=== PATIENT | male | born 1985 | race African-American/Black ===

== ENCOUNTER 2016-07-17 14:35 | Inpatient (IN) | payer MEDICAID ==
[~2016-07-17] VITALS: Ht 182.9 cm; Wt 114.3 kg
[2016-07-17] MEDS ORDERED: HALOD100I IM (16:11)
[2016-07-17 18:03] VITALS: BP 137/91
[2016-07-17] MEDS ORDERED: INFLUENZA VIRUS VACCINE QVS 2016-17 (3YR+)/PF 60 MCG/0.5 ML SYRINGE IM ONE (18:15)
[2016-07-17] MEDS ORDERED: ZOLPIDEM TARTRATE 10 MG TABLET PO PRN (18:45)
[2016-07-17] MEDS ORDERED: HALOPERIDOL 5 MG TABLET PO PRN (18:45)
[2016-07-17 19:04] VITALS: BP 142/88
[2016-07-17] MEDS: LORazepam 2 MG TABLET PO PRN (19:17)
[2016-07-17] MEDS: BENZTROPINE MESYLATE 0.5 MG TABLET PO SCH (22:27)
[2016-07-17] MEDS: HALOPERIDOL 5 MG TABLET PO SCH (22:27)
[2016-07-18 01:39] VITALS: BP 135/81
[2016-07-18] MEDS ORDERED: BISMUTH SUBSALICYLATE 262 MG CHEWABLE TABLET CHEW PRN (08:00)
[2016-07-18 08:11] VITALS: BP 118/50
[2016-07-18 08:30] LABS: BASOPHILS # (AUTO) 0.06 K/uL (0.00-0.20); BASOPHILS % (AUTO) 0.8 % (0.0-2.0); EOSINOPHILS # (AUTO) 0.11 K/uL (0.00-0.70); HEMATOCRIT 44.5 % (41-53); HEMOGLOBIN 14.5 g/dL (13.5-17.5); LYMPHOCYTES # (AUTO) 2.8 K/uL (1.0-4.8); LYMPHOCYTES % (AUTO) 37.2 % (22.0-44.0); MEAN CORPUSCULAR HEMOGLOBIN 28.4 pg (26.0-34.0); MEAN CORPUSCULAR HGB CONC 32.6 G/dL (31.0-37.0); MEAN CORPUSCULAR VOLUME 87 fL (80-100); MONOCYTES # (AUTO) 0.5 K/uL (0.1-1.0); MONOCYTES % (AUTO) 7.1 % (2.0-9.0); NEUTROPHILS % (AUTO) 53.4 % (40.0-70.0); PLATELET COUNT (AUTO) 166 K/uL (150-450); RED BLOOD CELL COUNT(AUTO) 5.12 MIL/uL (4.50-5.90); RED CELL DISTRIBUTION WIDTH 14.9 % (11.5-14.5); WHITE BLOOD COUNT (AUTO) 7.6 K/uL (4.5-11.0)
[2016-07-18 08:48] LABS: ALANINE AMINOTRANSFERASE 19 U/L (12-78); ALBUMIN 4.3 g/dL (3.4-5.0); ANION GAP 10 mmol/L (8-16); ASPARTATE AMINOTRANSFERASE 7 U/L (15-37); BILIRUBIN,TOTAL 0.4 mg/dL (0.1-1.0); CALCIUM, TOTAL 9.3 mg/dL (8.8-10.5); CARBON DIOXIDE 26 mmol/L (22-29); CHLORIDE 104 mmol/L (98-107); CHOL/HDL RATIO 3.3 (4.2-7.3); CREATININE 0.78 mg/dL (0.60-1.30); GLOMERULAR FILTR. RATE CALC > 60 mL/min (>60); POTASSIUM 4.4 mmol/L (3.5-5.1); SODIUM SERUM 140 mmol/L (136-145); THYROID STIMULATING HORMONE 0.92 uIU/mL (0.36-3.74); TOTAL PROTEIN, SERUM 7.8 g/dL (6.4-8.2); UREA NITROGEN, BLOOD 7 mg/dL (7-18)
[2016-07-18] MEDS: BENZTROPINE MESYLATE 0.5 MG TABLET PO SCH ×2 (09:10→16:50)
[2016-07-18] MEDS: HALOPERIDOL 5 MG TABLET PO SCH ×2 (09:10→16:50)
[2016-07-18] MEDS: NICOTINE 14 MG/24 HOUR PATCH TD SCH (09:10)
[2016-07-18 16:27] VITALS: BP 140/76
[2016-07-18] MEDS: LORazepam 2 MG TABLET PO PRN (16:50)
[2016-07-19 07:11] VITALS: BP 122/75
[2016-07-19 08:11] VITALS: BP 133/68
[2016-07-19] MEDS: BENZTROPINE MESYLATE 0.5 MG TABLET PO SCH ×2 (08:41→16:42)
[2016-07-19] MEDS: HALOPERIDOL 5 MG TABLET PO SCH ×2 (08:42→16:42)
[2016-07-19] MEDS: NICOTINE 14 MG/24 HOUR PATCH TD SCH (08:45)
[2016-07-19 16:00] VITALS: BP 121/72
[2016-07-20 06:41] VITALS: BP 122/60
[2016-07-20 08:38] VITALS: BP 120/68
[2016-07-20] MEDS: BENZTROPINE MESYLATE 0.5 MG TABLET PO SCH ×2 (08:50→17:18)
[2016-07-20] MEDS: HALOPERIDOL 5 MG TABLET PO SCH ×2 (08:50→17:18)
[2016-07-20] MEDS: NICOTINE 14 MG/24 HOUR PATCH TD SCH (08:54)
[2016-07-20 16:25] VITALS: BP 122/61
[2016-07-20] MEDS: LORazepam 2 MG TABLET PO PRN (19:10)
[2016-07-21 06:47] VITALS: BP 130/85
[2016-07-21 08:40] VITALS: BP 124/69
[2016-07-21] MEDS: HALOPERIDOL 5 MG TABLET PO SCH ×2 (08:40→16:38)
[2016-07-21] MEDS: BENZTROPINE MESYLATE 0.5 MG TABLET PO SCH ×2 (08:40→16:37)
[2016-07-21] MEDS: NICOTINE 14 MG/24 HOUR PATCH TD SCH (08:41)
[2016-07-21 16:26] VITALS: BP 132/69
[2016-07-21] MEDS: LORazepam 2 MG TABLET PO PRN ×2 (16:38→20:43)
[2016-07-22 06:42] VITALS: BP 108/61
[2016-07-22 08:11] VITALS: BP 129/76
[2016-07-22] MEDS ORDERED: BENZ0.5T6 PO (08:13)
[2016-07-22] MEDS ORDERED: HALO5 PO (08:13)
[2016-07-22] MEDS: HALOPERIDOL 5 MG TABLET PO SCH (08:54)
[2016-07-22] MEDS: BENZTROPINE MESYLATE 0.5 MG TABLET PO SCH (08:54)
[2016-07-22] MEDS: NICOTINE 14 MG/24 HOUR PATCH TD SCH (08:54)
== END 2016-07-22 13:40 | disposition home or self-care (01) | DRG 750 ==
LOC: B3A 18:47
PROVIDERS: ADMIT Psychiatry & Neurology Psychiatry; ATTEND Psychiatry & Neurology Psychiatry
DX: F25.1 Schizoaffective disorder, depressive type (principal); F15.20 Other stimulant dependence, uncomplicated; F17.210 Nicotine dependence, cigarettes, uncomplicated; Z71.6 Tobacco abuse counseling; Z28.21 Immunization not carried out because of patient refusal; Z79.899 Other long term (current) drug therapy; Z84.89 Family history of other specified conditions
CPT/HCPCS: 84443; 90471

== ENCOUNTER 2017-01-26 17:37 | Inpatient (IN) | payer MEDICAID ==
[~2017-01-26] VITALS: Ht 182.9 cm; Wt 96.4 kg
[~2017-01-26 17:37] MED LIST: BENZ0.5T6 PO; HALO5 PO
[2017-01-26 18:27] VITALS: BP 123/75
[2017-01-26] MEDS: BENZTROPINE MESYLATE 1 MG TABLET PO SCH (18:59)
[2017-01-26] MEDS ORDERED: INFLUENZA VIRUS VACCINE QVS 2017-18 (3YR+)/PF 60 MCG/0.5 ML SYRINGE IM ONE (19:00)
[2017-01-26] MEDS ORDERED: LORazepam 2 MG TABLET PO PRN (19:45)
[2017-01-26] MEDS ORDERED: HALOPERIDOL 5 MG TABLET PO PRN (19:45)
[2017-01-26] MEDS ORDERED: ZOLPIDEM TARTRATE 10 MG TABLET PO PRN (19:45)
[2017-01-26] MEDS ORDERED: HALOPERIDOL 10 MG TABLET PO SCH (21:00)
[2017-01-27 06:52] VITALS: BP 105/55
[2017-01-27 08:31] VITALS: BP 126/62
[2017-01-27] MEDS: BENZTROPINE MESYLATE 1 MG TABLET PO SCH (09:00)
[2017-01-27] MEDS ORDERED: OLANZapine 5 MG RAPDIS TABLET PO PRN (14:45)
[2017-01-27] MEDS ORDERED: GuaiFENesin/D-METHORPHAN [SUGAR-FREE] 200-20MG/10 ML SYRUP UDCUP PO PRN (14:45)
[2017-01-27] MEDS ORDERED: ACETAMINOPHEN 325 MG TABLET PO PRN (14:45)
[2017-01-27] MEDS ORDERED: TUBERCULIN, PURIFIED PROTEIN DERIVATIVE 5 TU/0.1 ML SYG ID ONE (14:45)
[2017-01-27] MEDS ORDERED: MAGNESIUM HYDROXIDE SUSPENSION 30 ML UDCUP PO PRN (14:45)
[2017-01-27] MEDS ORDERED: MAG HYDROX/AL HYDROX/SIMETH ES 30 ML SUSPENSION UDCUP PO PRN (14:45)
[2017-01-27] MEDS ORDERED: PROMETHAZINE HCL 25 MG TABLET PO PRN (14:45)
[2017-01-27] MEDS ORDERED: LOPERAMIDE HCL 2 MG CAPSULE PO PRN (14:45)
[2017-01-27] MEDS ORDERED: HydrOXYzine PAMOATE 50 MG CAPSULE PO PRN (14:45)
[2017-01-27] MEDS: THIAMINE HCL 100 MG TABLET PO SCH (16:25)
[2017-01-27 16:56] VITALS: BP 101/60
[2017-01-27] MEDS ORDERED: OLANZapine 5 MG RAPDIS TABLET PO SCH (21:00)
[2017-01-28 06:59] VITALS: BP 115/65
[2017-01-28 08:30] VITALS: BP 118/64
[2017-01-28] MEDS: NALTREXONE HCL 50 MG TABLET PO SCH (09:36)
[2017-01-28] MEDS: THIAMINE HCL 100 MG TABLET PO SCH ×2 (09:36→16:14)
[2017-01-28] MEDS: FOLIC ACID 1 MG TABLET PO SCH (09:36)
[2017-01-28] MEDS: MULTIVITAMINS WITH MINERALS, THERAPEUTIC TABLET PO SCH (09:36)
[2017-01-28] MEDS: FLUoxetine HCL 20 MG CAPSULE PO SCH (09:36)
[2017-01-28 16:48] VITALS: BP 124/67
[2017-01-28] MEDS: OLANZapine 10 MG RAPDIS TABLET PO SCH (20:27)
[2017-01-29 04:50] VITALS: BP 103/64
[2017-01-29] MEDS: NALTREXONE HCL 50 MG TABLET PO SCH (08:59)
[2017-01-29] MEDS: THIAMINE HCL 100 MG TABLET PO SCH ×2 (08:59→16:36)
[2017-01-29] MEDS: MULTIVITAMINS WITH MINERALS, THERAPEUTIC TABLET PO SCH (08:59)
[2017-01-29] MEDS: FLUoxetine HCL 20 MG CAPSULE PO SCH (08:59)
[2017-01-29] MEDS: FOLIC ACID 1 MG TABLET PO SCH (08:59)
[2017-01-29 09:00] VITALS: BP 108/58
[2017-01-29] MEDS ORDERED: OLAN10TA22 PO (15:01)
[2017-01-29] MEDS ORDERED: FLUO-191 PO (15:01)
[2017-01-29] MEDS ORDERED: NALT50TA PO (15:01)
[2017-01-29 16:27] VITALS: BP 125/80
[2017-01-29] MEDS: OLANZapine 10 MG RAPDIS TABLET PO SCH (20:23)
[2017-01-30 06:55] VITALS: BP 113/79
[2017-01-30] MEDS ORDERED: FLUoxetine HCL 20 MG CAPSULE PO SCH (09:00)
[2017-01-30 09:06] VITALS: BP 99/60
[2017-01-30] MEDS: FOLIC ACID 1 MG TABLET PO SCH (11:16)
[2017-01-30] MEDS: THIAMINE HCL 100 MG TABLET PO SCH (11:17)
[2017-01-30] MEDS: MULTIVITAMINS WITH MINERALS, THERAPEUTIC TABLET PO SCH (11:17)
[2017-01-30] MEDS ORDERED: MULT-723 PO (11:26)
[2017-01-30] MEDS ORDERED: FOLI1 PO (11:26)
[2017-01-30] MEDS ORDERED: THIA100 PO (11:26)
[2017-01-30] MEDS: NALTREXONE HCL 50 MG TABLET PO SCH (11:29)
[2017-05-13] MEDS ORDERED: BUPR75 PO (13:14)
[2017-05-18] MEDS ORDERED: FLUO-191 PO (11:46)
[2017-05-18] MEDS ORDERED: OLAN10TA3 PO (11:46)
[2017-05-18] MEDS ORDERED: BUPR-93 PO (11:46)
== END 2017-01-30 14:20 | disposition home or self-care (01) | DRG 750 ==
LOC: B2S 18:15 → EDSTATUS 18:27
PROVIDERS: ADMIT Psychiatry & Neurology Psychiatry; ATTEND Psychiatry & Neurology Psychiatry
DX: F20.0 Paranoid schizophrenia (principal); R45.851 Suicidal ideations; Z91.19 Patient's noncompliance with other medical treatment and regimen; F12.90 Cannabis use, unspecified, uncomplicated; F17.200 Nicotine dependence, unspecified, uncomplicated; F19.90 Other psychoactive substance use, unspecified, uncomplicated; E66.9 Obesity, unspecified; Z65.3 Problems related to other legal circumstances; Z68.34 Body mass index [BMI] 34.0-34.9, adult; Z82.49 Family history of ischemic heart disease and other diseases of the circulatory system; Z83.3 Family history of diabetes mellitus; Z59.0 Homelessness; Z72.89 Other problems related to lifestyle; Z71.41 Alcohol abuse counseling and surveillance of alcoholic; Z71.6 Tobacco abuse counseling; Z79.899 Other long term (current) drug therapy; Z28.21 Immunization not carried out because of patient refusal; Z81.8 Family history of other mental and behavioral disorders; Z84.89 Family history of other specified conditions; Z68.28 Body mass index [BMI] 28.0-28.9, adult
CPT/HCPCS: 90471

== ENCOUNTER 2017-02-11 12:08 | Inpatient (IN) | payer MEDICAID ==
[~2017-02-11] VITALS: Ht 182.9 cm; Wt 101.2 kg
[~2017-02-11 12:08] MED LIST changes: -BENZ0.5T6 PO; +FLUO-191 PO; +FOLI1 PO; -HALO5 PO; +MULT-723 PO; +NALT50TA PO; +OLAN10TA22 PO; +THIA100 PO
[2017-02-11 14:58] VITALS: BP 126/78
[2017-02-11] MEDS ORDERED: GuaiFENesin/D-METHORPHAN [SUGAR-FREE] 200-20MG/10 ML SYRUP UDCUP PO PRN (15:15)
[2017-02-11] MEDS ORDERED: LORazepam 2 MG TABLET PO PRN (15:15)
[2017-02-11] MEDS ORDERED: MAG HYDROX/AL HYDROX/SIMETH ES 30 ML SUSPENSION UDCUP PO PRN (15:15)
[2017-02-11] MEDS ORDERED: ZOLPIDEM TARTRATE 10 MG TABLET PO PRN (15:15)
[2017-02-11] MEDS ORDERED: INFLUENZA VIRUS VACCINE QVS 2017-18 (3YR+)/PF 60 MCG/0.5 ML SYRINGE IM ONE (15:15)
[2017-02-11] MEDS ORDERED: PROMETHAZINE HCL 25 MG TABLET PO PRN (15:15)
[2017-02-11] MEDS ORDERED: ACETAMINOPHEN 325 MG TABLET PO PRN (15:15)
[2017-02-11] MEDS ORDERED: HydrOXYzine PAMOATE 50 MG CAPSULE PO PRN (15:15)
[2017-02-11] MEDS ORDERED: MAGNESIUM HYDROXIDE SUSPENSION 30 ML UDCUP PO PRN (15:15)
[2017-02-11] MEDS ORDERED: LOPERAMIDE HCL 2 MG CAPSULE PO PRN (15:15)
[2017-02-11] MEDS ORDERED: OLANZapine 5 MG RAPDIS TABLET PO PRN (15:15)
[2017-02-11] MEDS ORDERED: OLAN10TA3 PO (15:28)
[2017-02-11] MEDS ORDERED: NALT50TA6 PO (15:28)
[2017-02-11] MEDS ORDERED: FLUO-191 PO (15:28)
[2017-02-11 17:27] VITALS: BP 126/66
[2017-02-11] MEDS: THIAMINE HCL 100 MG TABLET PO SCH (17:54)
[2017-02-11] MEDS: OLANZapine 5 MG RAPDIS TABLET PO SCH (21:37)
[2017-02-12 06:27] VITALS: BP 121/76
[2017-02-12 07:09] LABS: HEMOGLOBIN A1C 6.2 % (4.5-6.2)
[2017-02-12 07:10] LABS: ALANINE AMINOTRANSFERASE 23 U/L (12-78); ALBUMIN 3.5 g/dL (3.4-5.0); ANION GAP 7 mmol/L (8-16); ASPARTATE AMINOTRANSFERASE 9 U/L (15-37); BILIRUBIN,TOTAL 0.2 mg/dL (0.1-1.0); CALCIUM, TOTAL 8.7 mg/dL (8.8-10.5); CARBON DIOXIDE 31 mmol/L (22-29); CHLORIDE 107 mmol/L (98-107); CHOL/HDL RATIO 2.9 (4.2-7.3); CREATININE 0.93 mg/dL (0.60-1.30); GLOMERULAR FILTR. RATE CALC > 60 mL/min (>60); POTASSIUM 3.6 mmol/L (3.5-5.1); SODIUM SERUM 145 mmol/L (136-145); THYROID STIMULATING HORMONE 0.94 uIU/mL (0.36-3.74); TOTAL PROTEIN, SERUM 6.8 g/dL (6.4-8.2); UREA NITROGEN, BLOOD 12 mg/dL (7-18)
[2017-02-12 07:14] LABS: BASOPHILS % (AUTO) 0.4 % (0.0-2.0); EOSINOPHILS % (AUTO) 2.3 % (1.0-6.0); HEMATOCRIT 39.5 % (41-53); HEMOGLOBIN 13.2 g/dL (13.5-17.5); LYMPHOCYTES # (AUTO) 2.6 K/uL (1.0-4.8); MEAN CORPUSCULAR HEMOGLOBIN 29.4 pg (26.0-34.0); MEAN CORPUSCULAR HGB CONC 33.4 G/dL (31.0-37.0); MEAN CORPUSCULAR VOLUME 88 fL (80-100); MONOCYTES # (AUTO) 0.5 K/uL (0.1-1.0); MONOCYTES % (AUTO) 6.4 % (2.0-9.0); NEUTROPHILS % (AUTO) 54.9 % (40.0-70.0); PLATELET COUNT (AUTO) 180 K/uL (150-450); RED BLOOD CELL COUNT(AUTO) 4.49 MIL/uL (4.50-5.90); RED CELL DISTRIBUTION WIDTH 15.3 % (11.5-14.5); WHITE BLOOD COUNT (AUTO) 7.2 K/uL (4.5-11.0)
[2017-02-12] MEDS ORDERED: BISACODYL 5 MG EC TABLET PO PRN (07:45)
[2017-02-12] MEDS ORDERED: LACTULOSE 20 GM/30 ML SOLUTION UDCUP PO PRN (07:45)
[2017-02-12 08:52] VITALS: BP 119/72
[2017-02-12] MEDS ORDERED: DOCUSATE SODIUM 100 MG CAPSULE PO SCH (09:00)
[2017-02-12] MEDS: FOLIC ACID 1 MG TABLET PO SCH (09:39)
[2017-02-12] MEDS: NALTREXONE HCL 50 MG TABLET PO SCH (09:39)
[2017-02-12] MEDS: MULTIVITAMINS WITH MINERALS, THERAPEUTIC TABLET PO SCH (09:39)
[2017-02-12] MEDS: FLUoxetine HCL 20 MG CAPSULE PO SCH (09:39)
[2017-02-12] MEDS: THIAMINE HCL 100 MG TABLET PO SCH ×2 (09:39→16:22)
[2017-02-12] MEDS: DOCUSATE SODIUM 250 MG CAPSULE PO SCH (16:22)
[2017-02-12 16:30] VITALS: BP 124/78
[2017-02-12] MEDS: OLANZapine 5 MG RAPDIS TABLET PO SCH (20:43)
[2017-02-13 08:40] VITALS: BP 120/73
[2017-02-13] MEDS: MULTIVITAMINS WITH MINERALS, THERAPEUTIC TABLET PO SCH (09:20)
[2017-02-13] MEDS: DOCUSATE SODIUM 250 MG CAPSULE PO SCH ×2 (09:20→17:20)
[2017-02-13] MEDS: THIAMINE HCL 100 MG TABLET PO SCH ×2 (09:20→17:20)
[2017-02-13] MEDS: FOLIC ACID 1 MG TABLET PO SCH (09:21)
[2017-02-13] MEDS: NALTREXONE HCL 50 MG TABLET PO SCH (09:21)
[2017-02-13] MEDS: FLUoxetine HCL 20 MG CAPSULE PO SCH (09:21)
[2017-02-13 16:29] VITALS: BP 122/66
[2017-02-13] MEDS: OLANZapine 10 MG RAPDIS TABLET PO SCH (20:57)
[2017-02-14 08:22] VITALS: BP 115/60
[2017-02-14] MEDS: MULTIVITAMINS WITH MINERALS, THERAPEUTIC TABLET PO SCH (08:57)
[2017-02-14] MEDS: DOCUSATE SODIUM 250 MG CAPSULE PO SCH ×2 (08:57→17:38)
[2017-02-14] MEDS: FLUoxetine HCL 20 MG CAPSULE PO SCH (08:57)
[2017-02-14] MEDS: FOLIC ACID 1 MG TABLET PO SCH (08:57)
[2017-02-14] MEDS: NALTREXONE HCL 50 MG TABLET PO SCH (08:57)
[2017-02-14] MEDS: THIAMINE HCL 100 MG TABLET PO SCH ×2 (08:57→17:38)
[2017-02-14] MEDS: OLANZapine 10 MG RAPDIS TABLET PO SCH (20:19)
[2017-02-14 21:55] VITALS: BP 127/74
[2017-02-15 08:47] VITALS: BP 126/66
[2017-02-15] MEDS: THIAMINE HCL 100 MG TABLET PO SCH ×2 (09:14→17:07)
[2017-02-15] MEDS: NALTREXONE HCL 50 MG TABLET PO SCH (09:14)
[2017-02-15] MEDS: MULTIVITAMINS WITH MINERALS, THERAPEUTIC TABLET PO SCH (09:14)
[2017-02-15] MEDS: FLUoxetine HCL 20 MG CAPSULE PO SCH (09:14)
[2017-02-15] MEDS: DOCUSATE SODIUM 250 MG CAPSULE PO SCH ×2 (09:14→17:07)
[2017-02-15] MEDS: FOLIC ACID 1 MG TABLET PO SCH (09:14)
[2017-02-15 17:11] VITALS: BP 125/69
[2017-02-15] MEDS: OLANZapine 10 MG RAPDIS TABLET PO SCH (21:04)
[2017-02-16] MEDS: FLUoxetine HCL 20 MG CAPSULE PO SCH (08:55)
[2017-02-16] MEDS: MULTIVITAMINS WITH MINERALS, THERAPEUTIC TABLET PO SCH (08:56)
[2017-02-16] MEDS: THIAMINE HCL 100 MG TABLET PO SCH ×2 (08:56→16:55)
[2017-02-16] MEDS: FOLIC ACID 1 MG TABLET PO SCH (08:57)
[2017-02-16] MEDS: NALTREXONE HCL 50 MG TABLET PO SCH (08:57)
[2017-02-16] MEDS: DOCUSATE SODIUM 250 MG CAPSULE PO SCH ×2 (10:46→16:55)
[2017-02-16 11:00] VITALS: BP 136/70
[2017-02-16 16:30] VITALS: BP 114/60
[2017-02-16] MEDS: OLANZapine 10 MG RAPDIS TABLET PO SCH (20:15)
[2017-02-17 05:00] VITALS: BP 117/69
[2017-02-17 08:48] VITALS: BP 119/71
[2017-02-17] MEDS ORDERED: FLUoxetine HCL 20 MG CAPSULE PO SCH (09:00)
[2017-02-17] MEDS: DOCUSATE SODIUM 250 MG CAPSULE PO SCH ×2 (09:00→17:01)
[2017-02-17] MEDS: FOLIC ACID 1 MG TABLET PO SCH (09:45)
[2017-02-17] MEDS: NALTREXONE HCL 50 MG TABLET PO SCH (09:45)
[2017-02-17] MEDS: THIAMINE HCL 100 MG TABLET PO SCH ×2 (09:46→17:01)
[2017-02-17] MEDS: MULTIVITAMINS WITH MINERALS, THERAPEUTIC TABLET PO SCH (09:46)
[2017-02-17 16:09] VITALS: BP 124/71
[2017-02-17] MEDS: OLANZapine 10 MG RAPDIS TABLET PO SCH (20:21)
[2017-02-18 05:10] VITALS: BP 160/102
[2017-02-18] MEDS ORDERED: FLUoxetine HCL 20 MG CAPSULE PO SCH (09:00)
[2017-02-18] MEDS: MULTIVITAMINS WITH MINERALS, THERAPEUTIC TABLET PO SCH (09:02)
[2017-02-18] MEDS: FOLIC ACID 1 MG TABLET PO SCH (09:03)
[2017-02-18] MEDS: THIAMINE HCL 100 MG TABLET PO SCH (09:03)
[2017-02-18] MEDS: NALTREXONE HCL 50 MG TABLET PO SCH (09:03)
[2017-02-18] MEDS: DOCUSATE SODIUM 250 MG CAPSULE PO SCH (09:03)
[2017-02-18 09:14] VITALS: BP 118/73
[2017-02-18] MEDS ORDERED: NALT50TA PO (11:54)
[2017-02-18] MEDS ORDERED: FLUO-191 PO (11:54)
[2017-02-18] MEDS ORDERED: OLAN10TA22 PO (11:54)
[2017-02-18] MEDS ORDERED: DOCU250C91 PO (12:32)
[2017-05-13] MEDS ORDERED: BUPR75 PO (13:14)
[2017-05-18] MEDS ORDERED: BUPR-93 PO (11:46)
[2017-05-18] MEDS ORDERED: OLAN10TA3 PO (11:46)
[2017-05-18] MEDS ORDERED: FLUO-191 PO (11:46)
== END 2017-02-18 16:10 | disposition home or self-care (01) | DRG 750 ==
LOC: 3EI 16:01
PROVIDERS: ADMIT Psychiatry & Neurology Psychiatry; ATTEND Psychiatry & Neurology Psychiatry
DX: F20.0 Paranoid schizophrenia (principal); R45.851 Suicidal ideations; R45.850 Homicidal ideations; F32.9 Major depressive disorder, single episode, unspecified; D64.9 Anemia, unspecified; F17.200 Nicotine dependence, unspecified, uncomplicated; K59.00 Constipation, unspecified; Z82.49 Family history of ischemic heart disease and other diseases of the circulatory system; Z83.3 Family history of diabetes mellitus; Z59.9 Problem related to housing and economic circumstances, unspecified; Z79.899 Other long term (current) drug therapy; Z91.19 Patient's noncompliance with other medical treatment and regimen
CPT/HCPCS: 83036; 84439; 84443; 86592; 87081; 90471; 93005

== ENCOUNTER 2017-02-20 14:22 | Inpatient (IN) | payer MEDICAID ==
[~2017-02-20] VITALS: Ht 182.9 cm; Wt 101.6 kg
[2017-02-20 13:35] VITALS: BP 185/72
[~2017-02-20 14:22] MED LIST changes: +DOCU250C91 PO; -FOLI1 PO; -MULT-723 PO; +NALT50TA6 PO; +OLAN10TA3 PO; -THIA100 PO
[2017-02-20] MEDS ORDERED: HydrOXYzine PAMOATE 50 MG CAPSULE PO PRN (14:45)
[2017-02-20] MEDS ORDERED: LOPERAMIDE HCL 2 MG CAPSULE PO PRN (14:45)
[2017-02-20] MEDS ORDERED: ACETAMINOPHEN 325 MG TABLET PO PRN (14:45)
[2017-02-20] MEDS ORDERED: GuaiFENesin/D-METHORPHAN [SUGAR-FREE] 200-20MG/10 ML SYRUP UDCUP PO PRN (14:45)
[2017-02-20] MEDS ORDERED: PROMETHAZINE HCL 25 MG TABLET PO PRN (14:45)
[2017-02-20] MEDS ORDERED: MAG HYDROX/AL HYDROX/SIMETH ES 30 ML SUSPENSION UDCUP PO PRN (14:45)
[2017-02-20] MEDS ORDERED: OLANZapine 5 MG RAPDIS TABLET PO PRN (14:45)
[2017-02-20] MEDS ORDERED: MAGNESIUM HYDROXIDE SUSPENSION 30 ML UDCUP PO PRN (14:45)
[2017-02-20 15:24] LABS: ANION GAP 13 mmol/L (8-16); CARBON DIOXIDE 25 mmol/L (22-29); CHLORIDE 101 mmol/L (98-107); CREATININE 0.94 mg/dL (0.60-1.30); GLUCOSE,RANDOM 114 mg/dL (70-110); POTASSIUM 3.3 mmol/L (3.5-5.1); SODIUM SERUM 139 mmol/L (136-145); UREA NITROGEN, BLOOD 10 mg/dL (7-18)
[2017-02-20 15:25] LABS: CALCIUM, TOTAL 9.2 mg/dL (8.8-10.5); GLOMERULAR FILTR. RATE CALC > 60 mL/min (>60)
[2017-02-20 15:26] LABS: BASOPHILS % (AUTO) 0.4 % (0.0-2.0); EOSINOPHILS % (AUTO) 0.6 % (1.0-6.0); HEMATOCRIT 41.4 % (41-53); HEMOGLOBIN 14.1 g/dL (13.5-17.5); LYMPHOCYTES # (AUTO) 1.7 K/uL (1.0-4.8); LYMPHOCYTES % (AUTO) 16.4 % (22.0-44.0); MEAN CORPUSCULAR HEMOGLOBIN 29.3 pg (26.0-34.0); MEAN CORPUSCULAR HGB CONC 34.1 G/dL (31.0-37.0); MEAN CORPUSCULAR VOLUME 86 fL (80-100); MONOCYTES # (AUTO) 0.9 K/uL (0.1-1.0); MONOCYTES % (AUTO) 8.1 % (2.0-9.0); NEUTROPHILS # (AUTO) 7.8 K/uL (1.8-7.7); NEUTROPHILS % (AUTO) 74.5 % (40.0-70.0); PLATELET COUNT (AUTO) 179 K/uL (150-450); RED BLOOD CELL COUNT(AUTO) 4.81 MIL/uL (4.50-5.90); RED CELL DISTRIBUTION WIDTH 15.4 % (11.5-14.5)
[2017-02-20 15:30] LABS: ALANINE AMINOTRANSFERASE 42 U/L (12-78); ALBUMIN 4.1 g/dL (3.4-5.0); ALKALINE PHOSPHATASE 46 U/L (46-116); ASPARTATE AMINOTRANSFERASE 27 U/L (15-37); BILIRUBIN,TOTAL 0.3 mg/dL (0.1-1.0); TOTAL PROTEIN, SERUM 8.1 g/dL (6.4-8.2)
[2017-02-20 16:11] LABS: AMPHET/METH SCREEN,URINE POSITIVE (NEGATIVE); BARBITURATE SCREEN, URINE NEGATIVE (NEGATIVE); BENZODIAZEPINES SCREEN,URINE NEGATIVE (NEGATIVE); CANNABINOID SCREEN,URINE NEGATIVE (NEGATIVE); COCAINE SCREEN,URINE NEGATIVE (NEGATIVE); METHADONE SCREEN, URINE NEGATIVE (NEGATIVE); OPIATE SCREEN,URINE NEGATIVE (NEGATIVE)
[2017-02-20 16:12] LABS: PHENCYCLIDINE SCREEN,URINE NEGATIVE (NEGATIVE)
[2017-02-20] MEDS: THIAMINE HCL 100 MG TABLET PO SCH (18:03)
[2017-02-20 18:07] VITALS: BP 143/92
[2017-02-20] MEDS ORDERED: INFLUENZA VIRUS VACCINE QVS 2017-18 (3YR+)/PF 60 MCG/0.5 ML SYRINGE IM ONE (19:00)
[2017-02-20] MEDS ORDERED: OLANZapine 5 MG RAPDIS TABLET PO SCH (21:00)
[2017-02-20] MEDS ORDERED: POTASSIUM CHLORIDE 20 MEQ ER TABLET PO ONE (21:30)
[2017-02-20] MEDS ORDERED: DOCUSATE SODIUM 250 MG CAPSULE PO PRN (21:30)
[2017-02-21 05:16] VITALS: BP 140/86
[2017-02-21] MEDS: LORazepam 2 MG TABLET PO PRN (05:26)
[2017-02-21] MEDS: MULTIVITAMINS WITH MINERALS, THERAPEUTIC TABLET PO SCH (08:17)
[2017-02-21] MEDS: THIAMINE HCL 100 MG TABLET PO SCH ×2 (08:17→16:09)
[2017-02-21] MEDS: FOLIC ACID 1 MG TABLET PO SCH (08:17)
[2017-02-21 08:41] VITALS: BP 130/82
[2017-02-21] MEDS ORDERED: FLUoxetine HCL 10 MG CAPSULE PO SCH (09:00)
[2017-02-21] MEDS: FLUoxetine HCL 20 MG CAPSULE PO SCH (12:49)
[2017-02-21 16:11] VITALS: BP 116/61
[2017-02-21] MEDS: ZOLPIDEM TARTRATE 10 MG TABLET PO PRN (20:38)
[2017-02-21] MEDS: OLANZapine 10 MG TABLET PO SCH (20:38)
[2017-02-22 04:49] VITALS: BP 116/78
[2017-02-22] MEDS: MULTIVITAMINS WITH MINERALS, THERAPEUTIC TABLET PO SCH (08:40)
[2017-02-22] MEDS: THIAMINE HCL 100 MG TABLET PO SCH ×2 (08:40→16:48)
[2017-02-22] MEDS: FLUoxetine HCL 20 MG CAPSULE PO SCH (08:40)
[2017-02-22] MEDS: FOLIC ACID 1 MG TABLET PO SCH (08:40)
[2017-02-22 09:53] VITALS: BP 114/67
[2017-02-22 16:45] VITALS: BP 118/60
[2017-02-22] MEDS: OLANZapine 10 MG TABLET PO SCH (20:29)
[2017-02-23] MEDS: ZOLPIDEM TARTRATE 10 MG TABLET PO PRN ×2 (01:23→21:23)
[2017-02-23 01:25] VITALS: BP 120/89
[2017-02-23] MEDS: LORazepam 2 MG TABLET PO PRN (04:07)
[2017-02-23 08:20] VITALS: BP 115/65
[2017-02-23] MEDS: FOLIC ACID 1 MG TABLET PO SCH (09:06)
[2017-02-23] MEDS: THIAMINE HCL 100 MG TABLET PO SCH ×2 (09:06→16:41)
[2017-02-23] MEDS: FLUoxetine HCL 20 MG CAPSULE PO SCH (09:07)
[2017-02-23] MEDS: MULTIVITAMINS WITH MINERALS, THERAPEUTIC TABLET PO SCH (09:07)
[2017-02-23 09:16] LABS: FREE T4 (FREE THYROXINE) 0.76 ng/dL (0.76-1.46); POTASSIUM 3.8 mmol/L (3.5-5.1)
[2017-02-23 16:34] VITALS: BP 121/67
[2017-02-23] MEDS: OLANZapine 10 MG TABLET PO SCH (20:01)
[2017-02-24 00:01] VITALS: BP 134/70
[2017-02-24] MEDS: LORazepam 2 MG TABLET PO PRN ×2 (00:09→05:38)
[2017-02-24 08:48] VITALS: BP 124/60
[2017-02-24] MEDS: MULTIVITAMINS WITH MINERALS, THERAPEUTIC TABLET PO SCH (09:08)
[2017-02-24] MEDS: FOLIC ACID 1 MG TABLET PO SCH (09:08)
[2017-02-24] MEDS: THIAMINE HCL 100 MG TABLET PO SCH ×2 (09:09→16:06)
[2017-02-24] MEDS: FLUoxetine HCL 20 MG CAPSULE PO SCH (09:09)
[2017-02-24] MEDS ORDERED: FLUO-191 PO (14:46)
[2017-02-24] MEDS ORDERED: NALT50TA PO (14:46)
[2017-02-24] MEDS ORDERED: OLAN10TA20 PO (14:46)
[2017-02-24 16:14] VITALS: BP 123/81
[2017-02-24] MEDS: OLANZapine 10 MG TABLET PO SCH (20:55)
[2017-02-25 00:27] VITALS: BP 107/60
[2017-02-25] MEDS ORDERED: FLUO-191 PO (01:20)
[2017-02-25] MEDS: ZOLPIDEM TARTRATE 10 MG TABLET PO PRN (01:45)
[2017-02-25 08:25] VITALS: BP 134/79
[2017-02-25] MEDS ORDERED: NALTREXONE HCL 50 MG TABLET PO SCH (09:00)
[2017-02-25] MEDS: MULTIVITAMINS WITH MINERALS, THERAPEUTIC TABLET PO SCH (09:07)
[2017-02-25] MEDS: THIAMINE HCL 100 MG TABLET PO SCH (09:07)
[2017-02-25] MEDS: FLUoxetine HCL 20 MG CAPSULE PO SCH (09:07)
[2017-02-25] MEDS: FOLIC ACID 1 MG TABLET PO SCH (09:07)
[2017-05-13] MEDS ORDERED: BUPR75 PO (13:14)
[2017-05-18] MEDS ORDERED: OLAN10TA3 PO (11:46)
[2017-05-18] MEDS ORDERED: BUPR-93 PO (11:46)
[2017-05-18] MEDS ORDERED: FLUO-191 PO (11:46)
== END 2017-02-25 10:40 | disposition home or self-care (01) | DRG 750 ==
LOC: EMS 14:25 → B2S 17:46
PROVIDERS: ADMIT Psychiatry & Neurology Psychiatry; ATTEND Psychiatry & Neurology Psychiatry
DX: F25.0 Schizoaffective disorder, bipolar type (principal); R56.9 Unspecified convulsions; R45.851 Suicidal ideations; F32.9 Major depressive disorder, single episode, unspecified; F15.10 Other stimulant abuse, uncomplicated; F17.210 Nicotine dependence, cigarettes, uncomplicated; F41.0 Panic disorder [episodic paroxysmal anxiety]; K21.9 Gastro-esophageal reflux disease without esophagitis; Z91.19 Patient's noncompliance with other medical treatment and regimen; Z28.21 Immunization not carried out because of patient refusal
CPT/HCPCS: 84132; 84439; 87081; 93005; 99285; G0480

== ENCOUNTER 2017-03-04 11:32 | Inpatient (IN) | payer MEDICAID ==
[~2017-03-04] VITALS: Ht 182.9 cm; Wt 102.0 kg
[~2017-03-04 11:32] MED LIST changes: -DOCU250C91 PO; -NALT50TA6 PO; +OLAN10TA20 PO; -OLAN10TA22 PO; -OLAN10TA3 PO
[2017-03-04] MEDS ORDERED: SODIUM CHLORIDE 0.9% 1,000 ML IV ONE (12:00)
[2017-03-04 12:12] LABS: GLUCOSE,POINT OF CARE 88 MG/DL (70-110)
[2017-03-04 12:17] LABS: BASOPHILS # (AUTO) 0.06 K/uL (0.00-0.20); BASOPHILS % (AUTO) 0.7 % (0.0-2.0); EOSINOPHILS # (AUTO) 0.26 K/uL (0.00-0.70); EOSINOPHILS % (AUTO) 2.78 % (1.0-6.0); HEMOGLOBIN 12.2 g/dL (13.5-17.5); LYMPHOCYTES # (AUTO) 2.9 K/uL (1.0-4.8); LYMPHOCYTES % (AUTO) 31.7 % (22.0-44.0); MEAN CORPUSCULAR HEMOGLOBIN 28.5 pg (26.0-34.0); MEAN CORPUSCULAR HGB CONC 32.2 G/dL (31.0-37.0); MEAN CORPUSCULAR VOLUME 88 fL (80-100); MONOCYTES # (AUTO) 0.9 K/uL (0.1-1.0); MONOCYTES % (AUTO) 10.2 % (2.0-9.0); NEUTROPHILS # (AUTO) 5.1 K/uL (1.8-7.7); NEUTROPHILS % (AUTO) 54.7 % (40.0-70.0); PLATELET COUNT (AUTO) 179 K/uL (150-450); WHITE BLOOD COUNT (AUTO) 9.3 K/uL (4.5-11.0)
[2017-03-04 12:20] LABS: ANION GAP 7 mmol/L (8-16); CALCIUM, TOTAL 8.6 mg/dL (8.8-10.5); CARBON DIOXIDE 28 mmol/L (22-29); CHLORIDE 104 mmol/L (98-107); CREATININE 0.86 mg/dL (0.60-1.30); GLOMERULAR FILTR. RATE CALC > 60 mL/min (>60); POTASSIUM 3.4 mmol/L (3.5-5.1); SODIUM SERUM 139 mmol/L (136-145); UREA NITROGEN, BLOOD 14 mg/dL (7-18)
[2017-03-04 12:26] LABS: ACETAMINOPHEN < 2 mcg/mL (10-30); ALANINE AMINOTRANSFERASE 39 U/L (12-78); ALBUMIN 3.7 g/dL (3.4-5.0); ASPARTATE AMINOTRANSFERASE 36 U/L (15-37); BILIRUBIN,TOTAL 0.4 mg/dL (0.1-1.0); TOTAL PROTEIN, SERUM 7.1 g/dL (6.4-8.2)
[2017-03-04 12:28] LABS: SALICYLATE 2.5 mg/dL (2.8-20.0)
[2017-03-04 14:39] LABS: ADD UA MICROSCOPIC NO; APPEARANCE,URINE CLEAR (CLEAR); GLUCOSE, URINE (UA) NEGATIVE (NEGATIVE); KETONES,URINE NEGATIVE (NEGATIVE); LEUKOCYTE ESTERASE ,URINE NEGATIVE (NEGATIVE); OCCULT BLOOD,URINE NEGATIVE (NEGATIVE); PH,URINE 5.5 (5.0-8.0); PROTEIN,URINE NEGATIVE (NEGATIVE)
[2017-03-04] MEDS ORDERED: POTASSIUM CHLORIDE 20 MEQ ER TABLET PO ONE (16:15)
[2017-03-04] MEDS ORDERED: LOPERAMIDE HCL 2 MG CAPSULE PO PRN (17:15)
[2017-03-04] MEDS ORDERED: ZOLPIDEM TARTRATE 10 MG TABLET PO PRN (17:15)
[2017-03-04] MEDS ORDERED: OLANZapine 5 MG RAPDIS TABLET PO PRN (17:15)
[2017-03-04] MEDS ORDERED: LORazepam 2 MG TABLET PO PRN (17:15)
[2017-03-04] MEDS ORDERED: GuaiFENesin/D-METHORPHAN [SUGAR-FREE] 200-20MG/10 ML SYRUP UDCUP PO PRN (17:15)
[2017-03-04] MEDS ORDERED: PROMETHAZINE HCL 25 MG TABLET PO PRN (17:15)
[2017-03-04] MEDS ORDERED: MAGNESIUM HYDROXIDE SUSPENSION 30 ML UDCUP PO PRN (17:15)
[2017-03-04] MEDS ORDERED: ACETAMINOPHEN 325 MG TABLET PO PRN (17:15)
[2017-03-04] MEDS ORDERED: HydrOXYzine PAMOATE 50 MG CAPSULE PO PRN (17:15)
[2017-03-04] MEDS ORDERED: MAG HYDROX/AL HYDROX/SIMETH ES 30 ML SUSPENSION UDCUP PO PRN (17:15)
[2017-03-04 18:16] VITALS: BP 123/61
[2017-03-04] MEDS: THIAMINE HCL 100 MG TABLET PO SCH (18:30)
[2017-03-04] MEDS: OLANZapine 5 MG RAPDIS TABLET PO SCH (21:30)
[2017-03-05 06:13] LABS: BASOPHILS % (AUTO) 0.5 % (0.0-2.0); HEMATOCRIT 38.9 % (41-53); LYMPHOCYTES # (AUTO) 2.3 K/uL (1.0-4.8); LYMPHOCYTES % (AUTO) 29.7 % (22.0-44.0); MEAN CORPUSCULAR HEMOGLOBIN 29.5 pg (26.0-34.0); MEAN CORPUSCULAR HGB CONC 33.4 G/dL (31.0-37.0); MEAN CORPUSCULAR VOLUME 88 fL (80-100); MONOCYTES # (AUTO) 0.6 K/uL (0.1-1.0); MONOCYTES % (AUTO) 8.3 % (2.0-9.0); NEUTROPHILS # (AUTO) 4.5 K/uL (1.8-7.7); NEUTROPHILS % (AUTO) 58.5 % (40.0-70.0); PLATELET COUNT (AUTO) 183 K/uL (150-450); RED CELL DISTRIBUTION WIDTH 15.1 % (11.5-14.5); WHITE BLOOD COUNT (AUTO) 7.6 K/uL (4.5-11.0)
[2017-03-05 06:52] LABS: ALANINE AMINOTRANSFERASE 36 U/L (12-78); ALBUMIN 3.3 g/dL (3.4-5.0); ANION GAP 6 mmol/L (8-16); ASPARTATE AMINOTRANSFERASE 22 U/L (15-37); BILIRUBIN,TOTAL 0.5 mg/dL (0.1-1.0); CALCIUM, TOTAL 8.5 mg/dL (8.8-10.5); CARBON DIOXIDE 27 mmol/L (22-29); CHLORIDE 108 mmol/L (98-107); CHOL/HDL RATIO 2.9 (4.2-7.3); CREATININE 0.82 mg/dL (0.60-1.30); GLOMERULAR FILTR. RATE CALC > 60 mL/min (>60); POTASSIUM 3.9 mmol/L (3.5-5.1); SODIUM SERUM 141 mmol/L (136-145); TOTAL PROTEIN, SERUM 6.6 g/dL (6.4-8.2); UREA NITROGEN, BLOOD 9 mg/dL (7-18)
[2017-03-05] MEDS: MULTIVITAMINS WITH MINERALS, THERAPEUTIC TABLET PO SCH (08:48)
[2017-03-05] MEDS: THIAMINE HCL 100 MG TABLET PO SCH ×2 (08:48→17:55)
[2017-03-05] MEDS: NALTREXONE HCL 50 MG TABLET PO SCH (08:49)
[2017-03-05] MEDS: FOLIC ACID 1 MG TABLET PO SCH (08:49)
[2017-03-05] MEDS: FLUoxetine HCL 20 MG CAPSULE PO SCH (08:49)
[2017-03-05 09:17] VITALS: BP 104/54
[2017-03-05 16:46] VITALS: BP 101/52
[2017-03-05] MEDS: GABAPENTIN 100 MG CAPSULE PO SCH ×2 (17:55→21:25)
[2017-03-05] MEDS: OLANZapine 5 MG RAPDIS TABLET PO SCH (21:23)
[2017-03-06 04:25] VITALS: BP 136/71
[2017-03-06] MEDS: GABAPENTIN 100 MG CAPSULE PO SCH ×4 (08:33→21:07)
[2017-03-06] MEDS: NALTREXONE HCL 50 MG TABLET PO SCH (08:33)
[2017-03-06] MEDS: FOLIC ACID 1 MG TABLET PO SCH (08:33)
[2017-03-06] MEDS: FLUoxetine HCL 20 MG CAPSULE PO SCH (08:33)
[2017-03-06] MEDS: MULTIVITAMINS WITH MINERALS, THERAPEUTIC TABLET PO SCH (08:33)
[2017-03-06] MEDS: THIAMINE HCL 100 MG TABLET PO SCH ×2 (08:33→16:52)
[2017-03-06 08:49] VITALS: BP 106/56
[2017-03-06 19:07] VITALS: BP 117/60
[2017-03-06] MEDS: OLANZapine 10 MG RAPDIS TABLET PO SCH (21:07)
[2017-03-07 08:30] VITALS: BP 123/74
[2017-03-07] MEDS: FOLIC ACID 1 MG TABLET PO SCH (09:00)
[2017-03-07] MEDS: NALTREXONE HCL 50 MG TABLET PO SCH (09:00)
[2017-03-07] MEDS: GABAPENTIN 100 MG CAPSULE PO SCH ×4 (09:00→20:43)
[2017-03-07] MEDS: MULTIVITAMINS WITH MINERALS, THERAPEUTIC TABLET PO SCH (09:00)
[2017-03-07] MEDS: THIAMINE HCL 100 MG TABLET PO SCH ×2 (09:00→16:44)
[2017-03-07 19:37] VITALS: BP 129/87
[2017-03-07] MEDS: OLANZapine 10 MG RAPDIS TABLET PO SCH (20:43)
[2017-03-08 02:34] VITALS: BP 132/69
[2017-03-08 08:15] VITALS: BP 124/55
[2017-03-08] MEDS: NALTREXONE HCL 50 MG TABLET PO SCH (10:01)
[2017-03-08] MEDS: GABAPENTIN 100 MG CAPSULE PO SCH ×4 (10:01→20:08)
[2017-03-08] MEDS: MULTIVITAMINS WITH MINERALS, THERAPEUTIC TABLET PO SCH (10:01)
[2017-03-08] MEDS: FOLIC ACID 1 MG TABLET PO SCH (10:01)
[2017-03-08] MEDS: THIAMINE HCL 100 MG TABLET PO SCH ×2 (10:01→16:29)
[2017-03-08 17:12] VITALS: BP 129/69
[2017-03-08] MEDS: OLANZapine 10 MG RAPDIS TABLET PO SCH (20:08)
[2017-03-08] MEDS: DiphenhydrAMINE HCL 25 MG CAPSULE PO SCH (20:08)
[2017-03-09 06:31] VITALS: BP 129/73
[2017-03-09 08:05] VITALS: BP 132/86
[2017-03-09] MEDS: THIAMINE HCL 100 MG TABLET PO SCH ×3 (09:00→17:44)
[2017-03-09] MEDS: NALTREXONE HCL 50 MG TABLET PO SCH ×2 (09:00→13:16)
[2017-03-09] MEDS: FOLIC ACID 1 MG TABLET PO SCH ×2 (09:00→13:16)
[2017-03-09] MEDS: MULTIVITAMINS WITH MINERALS, THERAPEUTIC TABLET PO SCH (09:00)
[2017-03-09] MEDS: GABAPENTIN 100 MG CAPSULE PO SCH ×4 (09:00→20:22)
[2017-03-09 18:12] VITALS: BP 127/72
[2017-03-09] MEDS: OLANZapine 10 MG RAPDIS TABLET PO SCH (20:21)
[2017-03-09] MEDS: DiphenhydrAMINE HCL 25 MG CAPSULE PO SCH (20:23)
[2017-03-10 02:16] VITALS: BP 150/84
[2017-03-10] MEDS: THIAMINE HCL 100 MG TABLET PO SCH ×2 (09:00→16:12)
[2017-03-10] MEDS: GABAPENTIN 100 MG CAPSULE PO SCH ×3 (09:00→16:12)
[2017-03-10] MEDS: FOLIC ACID 1 MG TABLET PO SCH (09:00)
[2017-03-10] MEDS: MULTIVITAMINS WITH MINERALS, THERAPEUTIC TABLET PO SCH (09:00)
[2017-03-10] MEDS: NALTREXONE HCL 50 MG TABLET PO SCH (09:00)
[2017-03-10 13:29] VITALS: BP 118/62
[2017-03-10] MEDS ORDERED: OLAN10TA22 PO (15:57)
[2017-03-10] MEDS ORDERED: NALT50TA PO (15:57)
[2017-03-10] MEDS ORDERED: GABA-529 PO ×2 (15:57→16:23)
[2017-03-10] MEDS ORDERED: DIPH25 PO ×2 (15:57→16:22)
[2017-03-10] MEDS ORDERED: DIPH25CA85 PO (16:19)
[2017-05-13] MEDS ORDERED: BUPR75 PO (13:14)
[2017-05-18] MEDS ORDERED: BUPR-93 PO (11:46)
[2017-05-18] MEDS ORDERED: OLAN10TA3 PO (11:46)
[2017-05-18] MEDS ORDERED: FLUO-191 PO (11:46)
== END 2017-03-10 18:00 | disposition home or self-care (01) | DRG 750 ==
LOC: EMS 11:33 → 3EI 17:14
PROVIDERS: ADMIT Psychiatry & Neurology Psychiatry; ATTEND Psychiatry & Neurology Psychiatry
DX: F25.9 Schizoaffective disorder, unspecified (principal); R45.851 Suicidal ideations; Z91.14 Patient's other noncompliance with medication regimen; D64.9 Anemia, unspecified; F15.10 Other stimulant abuse, uncomplicated; F17.210 Nicotine dependence, cigarettes, uncomplicated; Z79.899 Other long term (current) drug therapy; Z71.6 Tobacco abuse counseling
CPT/HCPCS: 51702; 82962; 84443; 87081; 93005; 96360; 96361; 99285; 99406; G0480; G0481

== ENCOUNTER 2019-12-11 12:17 | Inpatient (IN) | payer SELFPAY ==
[~2019-12-11] VITALS: Ht 182.9 cm; Wt 102.7 kg
[~2019-12-11 12:17] MED LIST changes: +BUPR-93 PO; -NALT50TA PO; -OLAN10TA20 PO; +OLAN10TA3 PO
[2019-12-11] MEDS ORDERED: ZOLPIDEM TARTRATE 10 MG TABLET PO PRN (16:45)
[2019-12-11] MEDS ORDERED: LORazepam 2 MG TABLET PO PRN (16:45)
[2019-12-11] MEDS ORDERED: HALOPERIDOL 5 MG TABLET PO PRN (16:45)
[2019-12-11 19:30] VITALS: BP 121/74
[2019-12-11 19:36] LABS: AMPHET/METH SCREEN,URINE POSITIVE (NEGATIVE); BARBITURATE SCREEN, URINE NEGATIVE (NEGATIVE); BENZODIAZEPINES SCREEN,URINE NEGATIVE (NEGATIVE); CANNABINOID SCREEN,URINE POSITIVE (NEGATIVE); COCAINE SCREEN,URINE NEGATIVE (NEGATIVE); METHADONE SCREEN, URINE NEGATIVE (NEGATIVE); OPIATE SCREEN,URINE NEGATIVE (NEGATIVE)
[2019-12-11 19:38] LABS: PHENCYCLIDINE SCREEN,URINE POSITIVE (NEGATIVE)
[2019-12-11] MEDS: OLANZapine 5 MG TABLET PO SCH (20:25)
[2019-12-12 04:12] VITALS: BP 124/70
[2019-12-12] MEDS ORDERED: GuaiFENesin/D-METHORPHAN [SUGAR-FREE] 200-20MG/10 ML SYRUP UDCUP PO PRN (08:00)
[2019-12-12] MEDS ORDERED: IBUPROFEN 400 MG TABLET PO PRN (08:00)
[2019-12-12] MEDS ORDERED: ONDANSETRON HCL 4 MG TABLET PO PRN (08:00)
[2019-12-12] MEDS ORDERED: NICOTINE 14 MG/24 HOUR PATCH TD PRN (08:00)
[2019-12-12] MEDS ORDERED: MAG HYDROX/AL HYDROX/SIMETH ES 30 ML SUSPENSION UDCUP PO PRN (08:00)
[2019-12-12] MEDS ORDERED: MAGNESIUM HYDROXIDE SUSPENSION 30 ML UDCUP PO PRN (08:00)
[2019-12-12] MEDS ORDERED: ACETAMINOPHEN 325 MG TABLET PO PRN (08:00)
[2019-12-12] MEDS ORDERED: CloNIDine HCL 0.1 MG TABLET PO PRN (08:00)
[2019-12-12] MEDS ORDERED: PETROLATUM,WHITE 28 GM JELLY TP PRN (08:00)
[2019-12-12] MEDS ORDERED: DOCUSATE SODIUM 100 MG CAPSULE PO PRN (08:00)
[2019-12-12] MEDS ORDERED: ALBUTEROL SULFATE HFA 90 MCG/PUFF 8 GM INHALER IH PRN (08:00)
[2019-12-12] MEDS ORDERED: LOPERAMIDE HCL 2 MG CAPSULE PO PRN (08:00)
[2019-12-12 09:22] VITALS: BP 118/70
[2019-12-12] MEDS: OLANZapine 5 MG TABLET PO SCH ×2 (09:34→16:51)
[2019-12-12 16:09] VITALS: BP 113/67
[2019-12-12] MEDS: GABAPENTIN 300 MG CAPSULE PO SCH ×2 (16:51→16:57)
[2019-12-13 05:25] VITALS: BP 125/68
[2019-12-13] MEDS: OLANZapine 5 MG TABLET PO SCH ×2 (08:50→16:23)
[2019-12-13] MEDS: GABAPENTIN 300 MG CAPSULE PO SCH (09:00)
[2019-12-13 17:27] VITALS: BP 117/67
[2019-12-14 00:45] VITALS: BP 125/82
[2019-12-14] MEDS: GABAPENTIN 300 MG CAPSULE PO SCH ×3 (08:51→09:09)
[2019-12-14] MEDS: OLANZapine 5 MG TABLET PO SCH ×2 (08:51→17:40)
[2019-12-14 09:19] VITALS: BP 115/65
[2019-12-14 16:27] VITALS: BP 140/84
[2019-12-15 07:01] VITALS: BP 132/84
[2019-12-15 08:26] VITALS: BP 130/86
[2019-12-15] MEDS: OLANZapine 5 MG TABLET PO SCH ×2 (08:49→16:22)
[2019-12-15] MEDS: GABAPENTIN 300 MG CAPSULE PO SCH (08:53)
[2019-12-15 16:34] VITALS: BP 124/62
[2019-12-16 01:37] VITALS: BP 109/66
[2019-12-16] MEDS: GABAPENTIN 300 MG CAPSULE PO SCH (09:00)
[2019-12-16] MEDS: OLANZapine 5 MG TABLET PO SCH (09:18)
[2019-12-16 09:38] VITALS: BP 114/73
[2019-12-16] MEDS ORDERED: OLAN10TA3 PO (11:50)
[2019-12-16] MEDS ORDERED: GABA-1181 PO (11:50)
== END 2019-12-16 13:35 | disposition home or self-care (01) | DRG 885 ==
LOC: EMS 12:18 → B2S 16:41 → UNDOADMIN 18:30 → B2S 18:30
PROVIDERS: ADMIT Psychiatry & Neurology Psychiatry; ATTEND Psychiatry & Neurology Psychiatry
DX: F25.1 Schizoaffective disorder, depressive type (principal); R45.851 Suicidal ideations; E78.5 Hyperlipidemia, unspecified; F10.10 Alcohol abuse, uncomplicated; G40.909 Epilepsy, unspecified, not intractable, without status epilepticus; F17.210 Nicotine dependence, cigarettes, uncomplicated; F19.10 Other psychoactive substance abuse, uncomplicated; Z59.0 Homelessness